=== PATIENT | female | born 1945 | race Caucasian/White ===

== ENCOUNTER → 2018-01-22 | Outpatient (CLI) | payer MEDICARE, OTHER ==
[~2018-01-22] MED LIST: AMLODIPINE BESYL5 MG PO; ATORVASTATIN CA20 MG PO; LISINOPRIL10 MG PO; MELOXICAM15 MG PO; PRAVASTATIN SOD40 MG PO; SM GLUCOSAMINE1 EACH PO; SYNTHROID200 MCG PO
--- NOTE | 2018-01-22 11:36 | Diagnostic Imaging Report ---
PROCEDURE:US RETROPERITONEAL ( KIDNEY ). COMPARISON:MRI lumbar spine 04/11/2017. INDICATIONS:Cyst Of Kidney TECHNIQUE: Fragoso-scale and color sonographic images of the bilateral kidneys and bladder where obtained in transverse and longitudinal planes. FINDINGS: RIGHT KIDNEY: 11.9 cm in length, cortical thickness 1.9 cm. Cysts: Exophytic lower pole anechoic simple cyst measures 3.6 x 3 x 3.1 cm as seen on comparison MRI. Solid masses: None Stones: None Hydronephrosis: None Echogenicity: Normal renal cortical echogenicity. LEFT KIDNEY: 12.1 cm in length, cortical thickness 1.7 cm. Cysts: Exophytic upper pole simple cyst measures 1.5 x 1.5 x 1.7 cm. Solid masses: None Stones: None Hydronephrosis: None Echogenicity: Normal renal cortical echogenicity. Bladder: Poorly distended. CONCLUSION: Bilateral simple renal cysts as above. Dictated by: Alfredo Ny M.D. on 01/22/2018 at 11:39 Electronically approved by: Alfredo Ny M.D. on 01/22/2018 at 11:39
== END ==
LOC: US 09:52
PROVIDERS: ATTEND Family Medicine
DX: N28.1 Cyst of kidney, acquired (principal)
CPT/HCPCS: 76770